=== PATIENT | female | born 1990 | race Caucasian/White ===

== ENCOUNTER 2016-08-12 19:56 | Emergency (ER) | payer BC, OTHER ==
[2016-08-12] MEDS ORDERED: NAPROXEN 250 MG TAB As Ordered ONE (22:35)
--- NOTE | 2016-08-12 22:41 | EDDOCDS ---
Physician Documentation [facility] Name: Danielle Castro Age: 26 yrs Sex: Female : 1990 Arrival Date: 08/12/2016 Time: 19:56 Bed I6 / 28 Private MD: Fara Morales Disposition: 08/12/16 22:30 Discharged to Home/Self Care. Impression: Sprain of unspecified site of right knee. - Condition is Stable. - Discharge Instructions: Elastic Bandage and RICE, Knee Sprain, Crutch Use, [id number]. - Prescriptions for Naprosyn 500 mg Oral Tablet - take 1 tablet by ORAL route 2 times per day take with food; 30 tablet. - Work Release Form - 3 day, Medication Reconciliation, Local Pharmacy Hours form. - Follow up: Orthopaedics, [facility]; When: Call to arrange an appointment; Reason: Recheck today's complaints. Follow up: Fara Morales; When: As needed; Reason: Continuance of care. - Problem is new. - Symptoms are unchanged. Historical: - Allergies: No known drug Allergies; - Home Meds: 1. Singulair 10 mg Oral tab 1 tab once daily 2. omeprazole 20 mg Oral cpDR 1 cap once daily 3. Propranolol 15mg Oral 2 times per day 4. albuterol sulfate 90 mcg/actuation Inhl aepb 1 puff every 4-6 hours - PMHx: Asthma; Hypertension; sinus arrythmia; - PSHx: wisdom teeth extraction; nose; - Social history: Smoking status: Patient states was never smoker of tobacco. No barriers to communication noted, The patient speaks fluent [place] Islander. - Family history: Not pertinent. - : The pt / caregiver states he / she is not on anticoagulants. Home medication list is obtained from the patient. - Exposure Risk Screening:: None identified. 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 7 in. (170.18 cm); Pain 6/10; 22:09 BP 145 / 78 RA Sitting (auto/reg); Pulse 76 MON; Resp 20 S; Temp 98.1(TE); Pulse Ox 98% cln on R/A; Pain 310; 19:58 Body Mass Index 25.06 (72.57 kg, 170.18 cm) gr2 MDM: 20:56 Clyde Wrap ordered. ar2 20:56 Crutches ordered. ar2 20:57 Knee, Complete Ordered. EDMS 21:08 [facility] Payment Agreement was scanned into [employer] and attached to record. gjb 21:08 Financial registration complete. gjb 22:31 Naproxen 500 mg PO once; administer with food or milk ordered. ar2 Administered Medications: 22:37 Drug: Naproxen 500 mg [naproxen 250 mg tablet (2 tabs)] Route: PO; ld5 22:37 Follow up: Response: Pt left department before re-evaluation is appropriate ld5 Signatures: Dispatcher Med[employer] EDMS Arnulfo Burns PA-C PA-C ar2 Fela Bhakta RN RN ld5 Suzan Dudley RN RN af2 Mady Overton gjb The chart was reviewed and I authenticate all verbal orders and agree with the evaluation and treatment provided.Attachments: 21:08 [facility] Payment Agreement gjb MTDD
--- NOTE | 2016-08-12 22:42 | EDDOCDS ---
Nurse's Notes [facility] Name: Danielle Castro Age: 26 yrs Sex: Female : 1990 Arrival Date: 08/12/2016 Time: 19:56 Bed I6 / 28 Private MD: Fara Morales Diagnosis: Sprain of unspecified site of right knee Presentation: 08/12 20:00 Presenting complaint: Patient states: getting into car and felt a pop in right knee, af2 now reports pain and swelling to area. Adult Sepsis Screening: The patient does not have new or worsening altered mentation. Patient's respiratory rate is less than 22. Systolic blood pressure is greater than 100. Patient has a qSOFA score of 0- Negative Sepsis Screen. Suicide/Homicide risk assessment- the patient denies having any suicidal and/or homicidal ideations and does not present with any other emotional, behavioral or mental health complaints. Status: Patient is not a community service manager or dependent. Transition of care: patient was not received from another setting of care. 20:00 Acuity: MICHAEL Level 4 af2 20:00 Method Of Arrival: Walkin/Carried/Asstd af2 Triage Assessment: 20:03 General: Appears in no apparent distress, Behavior is cooperative. Pain: Location: af2 right knee Pain currently is 8 out of 10 on a pain scale. Pt Declines HIV testing. Musculoskeletal: Reports pain in right knee. 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 Singulair 10 mg Oral tab 1 tab once daily 2. omeprazole 20 mg Oral cpDR 1 cap once daily 3. Propranolol 15mg Oral 2 times per day 4. albuterol sulfate 90 mcg/actuation Inhl aepb 1 puff every 4-6 hours - PMHx: Asthma; Hypertension; sinus arrythmia; - PSHx: wisdom teeth extraction; nose; - Social history: Smoking status: Patient states was never smoker of tobacco. No barriers to communication noted, The patient speaks fluent Nigerian. - Family history: Not pertinent. - : The pt / caregiver states he / she is not on anticoagulants. Home medication list is obtained from the patient. - Exposure Risk Screening:: None identified. Screenin:39 Screening information is obtained from the patient. Fall risk: No risks identified. ld5 Assistance ADL's: requires no assistance with activities of daily living. Abuse/DV Screen: The patient / caregiver reports he/she is: not in a situation that causes fear, pain or injury. Nutritional screening: No deficits noted. Advance Directives: Currently, there is no health care proxy. home support is adequate. Assessment: 22:39 General: Appears in no apparent distress, First contact with pt. Pain: Location: right ld5 knee Pain currently is 3 out of 10 on a pain scale. Neurological: Level of Consciousness is awake, alert. Respiratory: Airway is patent Respiratory effort is even, unlabored. Musculoskeletal: Reports pain in right knee. Vital Signs: 19:58 BP 154 / 88; Pulse 81; Resp 18 S; Temp 97.9(O); Pulse Ox 98% on R/A; Weight 72.57 kg; gr2 Height 5 ft. 7 in. (170.18 cm); Pain 6/10; 22:09 BP 145 / 78 RA Sitting (auto/reg); Pulse 76 MON; Resp 20 S; Temp 98.1(TE); Pulse Ox 98% cln on R/A; Pain 3/10; 19:58 Body Mass Index 25.06 (72.57 kg, 170.18 cm) gr2 Vitals: 19:58 Log In Time: August 12, 2016 at 09:58. gr2 ED Course: 19:58 Patient visited by Juli Davis. gr2 19:58 Fara Morales is Private Physician. gr2 19:58 Patient moved to Waiting gr2 19:59 Patient visited by Juli Davis. gr2 19:59 Patient moved to Pre RCE gr2 20:01 Triage Initiated af2 20:03 Patient visited by Suzan Dudley RN. af2 20:17 Patient moved to Triage 3 kmg1 20:50 Arnulfo Burns PA-C is PHCP. ar2 20:50 Sourav Patel DO is Attending Physician. ar2 20:50 Patient visited by Arnulfo Burns PA-C. ar2 21:04 Patient moved to TR5 9 21:08 [facility] Payment Agreement was scanned into [employer] and attached to record. gjb 21:55 Ginna Zuluaga, CHAITANYA is Primary Nurse. cln 21:55 Patient moved to I6 / 28 cln 22:09 Patient visited by Lorena Rangel PCA. cln 22:[facility]. ar2 22:30 Fara Morales is Referral Physician. ar2 22:39 The patient / caregiver is instructed regarding the plan of care and ED course. ld5 22:39 No IV's were initiated during this patient's visit. No procedures done that require ld5 assistance. Clyde wrap to right knee. Patient has positive distal pulse, brisk capillary refill, and positive sensation after application. Crutch training done. 22:41 Patient visited by Fela BhaktaRN. ld5 Administered Medications: 22:37 Drug: Naproxen 500 mg [naproxen 250 mg tablet (2 tabs)] Route: PO; ld5 22:37 Follow up: Response: Pt left department before re-evaluation is appropriate ld5 Order Results: There are currently no results for this order. Outcome: 22:30 Discharge ordered by Provider. ar2 22:39 Discharge Assessment: Patient awake, alert and oriented x 3. No cognitive and/or ld5 functional deficits noted. Patient verbalized understanding of disposition instructions. patient administered narcotics - no. The following High Risk Discharge criteria are identified: None. Discharged to home ambulatory, with crutches, with family. Condition: stable. Discharge instructions given to patient, Instructed on discharge instructions, follow up and referral plans. medication usage, crutch walking, Demonstrated understanding of instructions, crutch walking, medications, Pt was receptive of discharge instructions/ teaching. Prescriptions given X 1. Work note provided to patient. No special radiology studies were completed. Property :Personal belongings accompany Pt. 22:41 Patient left the ED. ld5 Signatures: Stormy Stevens, RN RN kmg1 Arnulfo Burns, PA-C PA-C ar2 Fela Bhakta,RN RN ld5 Juli Davis gr2 Benito Corey,CHAITANYA RN mb9 Suzan Dudley RN RN af2 Mady Overton Crystal, PCA TAR HEAT EXCHANGER CLEANER cln MTDD
--- NOTE | 2016-08-13 08:44 | REP ---
Clinical: Trauma. Technique: AP, lateral, bilateral oblique and sunrise views. Findings: The osseous structures and joint spaces are intact. There is no evidence for acute fracture or dislocation. No joint effusion is appreciated. Surrounding soft tissues are unremarkable. No subcutaneous emphysema or radiodense foreign body. Impression: No acute fracture or dislocation. Signed by Maurizio Wallace MD 08/13/2016 08:35 A
--- NOTE | 2016-08-14 23:42 | EDDOCDS ---
Physician Documentation [facility] Name: Danielle Castro Age: 26 yrs Sex: Female : 1990 Arrival Date: 08/12/2016 Time: 19:56 Bed I6 / 28 Private MD: Fara Morales Disposition: 08/12/16 22:30 Discharged to Home/Self Care. Impression: Sprain of unspecified site of right knee. - Condition is Stable. - Discharge Instructions: Elastic Bandage and RICE, Knee Sprain, Crutch Use, [id number]. - Prescriptions for Naprosyn 500 mg Oral Tablet - take 1 tablet by ORAL route 2 times per day take with food; 30 tablet. - Work Release Form - 3 day, Medication Reconciliation, Local Pharmacy Hours form. - Follow up: Orthopaedics, [facility]; When: Call to arrange an appointment; Reason: Recheck today's complaints. Follow up: Fara Morales; When: As needed; Reason: Continuance of care. - Problem is new. - Symptoms are unchanged. Historical: - Allergies: No known drug Allergies; - Home Meds: 1. Singulair 10 mg Oral tab 1 tab once daily 2. omeprazole 20 mg Oral cpDR 1 cap once daily 3. Propranolol 15mg Oral 2 times per day 4. albuterol sulfate 90 mcg/actuation Inhl aepb 1 puff every 4-6 hours - PMHx: Asthma; Hypertension; sinus arrythmia; - PSHx: wisdom teeth extraction; nose; - Social history: Smoking status: Patient states was never smoker of tobacco. No barriers to communication noted, The patient speaks fluent Nepalese. - Family history: Not pertinent. - : The pt / caregiver states he / she is not on anticoagulants. Home medication list is obtained from the patient. - Exposure Risk Screening:: None identified. 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 7 in. (170.18 cm); Pain 6/10; 22:09 BP 145 / 78 RA Sitting (auto/reg); Pulse 76 MON; Resp 20 S; Temp 98.1(TE); Pulse Ox 98% cln on R/A; Pain 310; 19:58 Body Mass Index 25.06 (72.57 kg, 170.18 cm) gr2 MDM: 20:56 Clyde Wrap ordered. ar2 20:56 Crutches ordered. ar2 20:57 Knee, Complete Ordered. EDMS : [facility] Payment Agreement was scanned into [employer] and attached to record. gjb : Financial registration complete. gjb 22:31 Naproxen 500 mg PO once; administer with food or milk ordered. ar2 08/13 11:20 T-Sheet-- Draft Copy was scanned into [employer] and attached to record. gb Administered Medications: 08/12 22:37 Drug: Naproxen 500 mg [naproxen 250 mg tablet (2 tabs)] Route: PO; ld5 22:37 Follow up: Response: Pt left department before re-evaluation is appropriate ld5 Signatures: Dispatcher MedHost EDKS Rach Smith, Reg Reg gb Arnulfo Burns, CHRISTINA PADebbi ar2 Fela BhaktaRN RN ld5 Suzan DudleyRN RN af2 Mady Overton gjb The chart was reviewed and I authenticate all verbal orders and agree with the evaluation and treatment provided.Attachments: : [facility] Payment Agreement [facility] 08/13 11:20 T-Sheet-- Draft Copy gb Chart Complete MTDD
--- NOTE | 2016-08-14 23:42 | EDDOCDS ---
Nurse's Notes [facility] Name: Danielle Castro Age: 26 yrs Sex: Female : 1990 Arrival Date: 08/12/2016 Time: 19:56 Bed I6 / 28 Private MD: Fara Morales Diagnosis: Sprain of unspecified site of right knee Presentation: 08/12 20:00 Presenting complaint: Patient states: getting into car and felt a pop in right knee, af2 now reports pain and swelling to area. Adult Sepsis Screening: The patient does not have new or worsening altered mentation. Patient's respiratory rate is less than 22. Systolic blood pressure is greater than 100. Patient has a qSOFA score of 0- Negative Sepsis Screen. Suicide/Homicide risk assessment- the patient denies having any suicidal and/or homicidal ideations and does not present with any other emotional, behavioral or mental health complaints. 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 Transition of care: patient was not received from another setting of care. 20:00 Acuity: MICHAEL Level 4 af2 20:00 Method Of Arrival: Walkin/Carried/Asstd af2 Triage Assessment: 20:03 General: Appears in no apparent distress, Behavior is cooperative. Pain: Location: af2 right knee Pain currently is 8 out of 10 on a pain scale. Pt Declines HIV testing. Musculoskeletal: Reports pain in right knee. 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 Singulair 10 mg Oral tab 1 tab once daily 2. omeprazole 20 mg Oral cpDR 1 cap once daily 3. Propranolol 15mg Oral 2 times per day 4. albuterol sulfate 90 mcg/actuation Inhl aepb 1 puff every 4-6 hours - PMHx: Asthma; Hypertension; sinus arrythmia; - PSHx: wisdom teeth extraction; nose; - Social history: Smoking status: Patient states was never smoker of tobacco. No barriers to communication noted, The patient speaks fluent Tanzanian. - Family history: Not pertinent. - : The pt / caregiver states he / she is not on anticoagulants. Home medication list is obtained from the patient. - Exposure Risk Screening:: None identified. Screenin:39 Screening information is obtained from the patient. Fall risk: No risks identified. ld5 Assistance ADL's: requires no assistance with activities of daily living. Abuse/DV Screen: The patient / caregiver reports he/she is: not in a situation that causes fear, pain or injury. Nutritional screening: No deficits noted. Advance Directives: Currently, there is no health care proxy. home support is adequate. Assessment: 22:39 General: Appears in no apparent distress, First contact with pt. Pain: Location: right ld5 knee Pain currently is 3 out of 10 on a pain scale. Neurological: Level of Consciousness is awake, alert. Respiratory: Airway is patent Respiratory effort is even, unlabored. Musculoskeletal: Reports pain in right knee. Vital Signs: 19:58 BP 154 / 88; Pulse 81; Resp 18 S; Temp 97.9(O); Pulse Ox 98% on R/A; Weight 72.57 kg; gr2 Height 5 ft. 7 in. (170.18 cm); Pain 6/10; 22:09 BP 145 / 78 RA Sitting (auto/reg); Pulse 76 MON; Resp 20 S; Temp 98.1(TE); Pulse Ox 98% cln on R/A; Pain 3/10; 19:58 Body Mass Index 25.06 (72.57 kg, 170.18 cm) gr2 Vitals: 19:58 Log In Time: August 12, 2016 at 09:58. gr2 ED Course: 19:58 Patient visited by Juli Davis. gr2 19:58 Fara Morales is Private Physician. gr2 19:58 Patient moved to Waiting gr2 19:59 Patient visited by Juli Davis. gr2 19:59 Patient moved to Pre RCE gr2 20:01 Triage Initiated af2 20:03 Patient visited by Suzan Dudley RN. af2 20:17 Patient moved to Triage 3 kmg1 20:50 Arnulfo Burns PA-C is PHCP. ar2 20:50 Sourav Patel DO is Attending Physician. ar2 20:50 Patient visited by Arnulfo Burns PA-C. ar2 21:04 Patient moved to TR5 9 21:08 [facility] Payment Agreement was scanned into [employer] and attached to record. gjb 21:55 Ginna Zuluaga, CHAITANYA is Primary Nurse. cln 21:55 Patient moved to I6 / 28 cln 22:09 Patient visited by Lorena Rangel PCA. cln 22:30 [facility]. ar2 22:30 Fara Morales is Referral Physician. ar2 22:39 The patient / caregiver is instructed regarding the plan of care and ED course. ld5 22:39 No IV's were initiated during this patient's visit. No procedures done that require ld5 assistance. Clyde wrap to right knee. Patient has positive distal pulse, brisk capillary refill, and positive sensation after application. Crutch training done. 22:41 Patient visited by Fela Bhakta RN. ld5 08/13 09:01 Knee, Complete Returned. EDMS 11:20 T-Sheet-- Draft Copy was scanned into [employer] and attached to record. gb Administered Medications: 08/12 22:37 Drug: Naproxen 500 mg [naproxen 250 mg tablet (2 tabs)] Route: PO; ld5 22:37 Follow up: Response: Pt left department before re-evaluation is appropriate ld5 Order Results: Radiology Order: Knee, Complete Test: Knee, Complete REASON FOR EXAMINATION: trauma, twist general pain; Clinical: Trauma.; ; Technique: AP, lateral, bilateral oblique and sunrise views.; ; Findings: The osseous structures and joint spaces are intact. There is no; evidence for acute fracture or dislocation. No joint effusion is appreciated.; Surrounding soft tissues are unremarkable. No subcutaneous emphysema or; radiodense foreign body.; ; Impression: No acute fracture or dislocation.; ; ; Signed by; Maurizio Wallace MD 08/13/2016 08:35 A; Outcome: 22:30 Discharge ordered by Provider. ar2 22:39 Discharge Assessment: Patient awake, alert and oriented x 3. No cognitive and/or ld5 functional deficits noted. Patient verbalized understanding of disposition instructions. patient administered narcotics - no. The following High Risk Discharge criteria are identified: None. Discharged to home ambulatory, with crutches, with family. Condition: stable. Discharge instructions given to patient, Instructed on discharge instructions, follow up and referral plans. medication usage, crutch walking, Demonstrated understanding of instructions, crutch walking, medications, Pt was receptive of discharge instructions/ teaching. Prescriptions given X 1. Work note provided to patient. No special radiology studies were completed. Property :Personal belongings accompany Pt. 22:41 Patient left the ED. ld5 Signatures: Dispatcher MedHost EDMS Stormy Stevens, RN RN kmg1 Rach Smith, Garcia Reg Arnulfo Burns, PADebbi PADebbi ar2 Fela Bhakta RN RN ld5 Juli Davis gr2 Benito Corey RN RN mb9 Suzan Dudley RN RN 2 Mady Overton Crystal, KELLIE CONSUMER INSIGHT MANAGER cln Chart Complete MTDD
--- NOTE | 2016-08-14 23:42 | EDDOCDS ---
Physician Documentation [facility] Name: Danielle Castro Age: 26 yrs Sex: Female : 1990 Arrival Date: 08/12/2016 Time: 19:56 Bed I6 / 28 Private MD: Fara Morales Disposition: 08/12/16 22:30 Discharged to Home/Self Care. Impression: Sprain of unspecified site of right knee. - Condition is Stable. - Discharge Instructions: Elastic Bandage and RICE, Knee Sprain, Crutch Use, [id number]. - Prescriptions for Naprosyn 500 mg Oral Tablet - take 1 tablet by ORAL route 2 times per day take with food; 30 tablet. - Work Release Form - 3 day, Medication Reconciliation, Local Pharmacy Hours form. - Follow up: Orthopaedics, [facility]; When: Call to arrange an appointment; Reason: Recheck today's complaints. Follow up: Fara Morales; When: As needed; Reason: Continuance of care. - Problem is new. - Symptoms are unchanged. Historical: - Allergies: No known drug Allergies; - Home Meds: 1. Singulair 10 mg Oral tab 1 tab once daily 2. omeprazole 20 mg Oral cpDR 1 cap once daily 3. Propranolol 15mg Oral 2 times per day 4. albuterol sulfate 90 mcg/actuation Inhl aepb 1 puff every 4-6 hours - PMHx: Asthma; Hypertension; sinus arrythmia; - PSHx: wisdom teeth extraction; nose; - Social history: Smoking status: Patient states was never smoker of tobacco. No barriers to communication noted, The patient speaks fluent Belgian. - Family history: Not pertinent. - : The pt / caregiver states he / she is not on anticoagulants. Home medication list is obtained from the patient. - Exposure Risk Screening:: None identified. 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 7 in. (170.18 cm); Pain 6/10; 22:09 BP 145 / 78 RA Sitting (auto/reg); Pulse 76 MON; Resp 20 S; Temp 98.1(TE); Pulse Ox 98% cln on R/A; Pain 310; 19:58 Body Mass Index 25.06 (72.57 kg, 170.18 cm) gr2 MDM: 20:56 Clyde Wrap ordered. ar2 20:56 Crutches ordered. ar2 20:57 Knee, Complete Ordered. EDMS : [facility] Payment Agreement was scanned into [employer] and attached to record. gjb : Financial registration complete. gjb 22:31 Naproxen 500 mg PO once; administer with food or milk ordered. ar2 08/13 11:20 T-Sheet-- Draft Copy was scanned into [employer] and attached to record. gb Administered Medications: 08/12 22:37 Drug: Naproxen 500 mg [naproxen 250 mg tablet (2 tabs)] Route: PO; ld5 22:37 Follow up: Response: Pt left department before re-evaluation is appropriate ld5 Signatures: Dispatcher [employer]Host EDNM Rach Smith, Reg Reg gb Anrulfo Burns, CHRISTINA PADebbi ar2 Fela BhaktaRN RN ld5 Suzan DudleyRN RN af2 Mady Overton gjb The chart was reviewed and I authenticate all verbal orders and agree with the evaluation and treatment provided.Attachments: : [facility] Payment Agreement [facility] 08/13 11:20 T-Sheet-- Draft Copy gb Chart Complete MTDD
== END 2016-08-12 22:41 | disposition home or self-care (01) ==
LOC: M ED 19:56
DX: S83.91XA Sprain of unspecified site of right knee, initial encounter (principal); X58.XXXA Exposure to other specified factors, initial encounter; Y92.89 Other specified places as the place of occurrence of the external cause; Y93.89 Activity, other specified; Y99.8 Other external cause status; J45.909 Unspecified asthma, uncomplicated; I10 Essential (primary) hypertension; I49.8 Other specified cardiac arrhythmias; Z79.899 Other long term (current) drug therapy; Z79.51 Long term (current) use of inhaled steroids

== ENCOUNTER 2018-08-22 12:10 | Emergency (ER) | payer BC, OTHER ==
[~2018-08-22] VITALS: Ht 167.6 cm; Wt 65.9 kg
[2018-08-22] MEDS ORDERED: VENTAER (12:16)
[2018-08-22] MEDS ORDERED: PROP10TA56 (12:16)
[2018-08-22] MEDS ORDERED: OMEP20CA3 (12:16)
[2018-08-22] MEDS ORDERED: MONT10TA2 (12:16)
[2018-08-22 13:52] LABS: BASO # 0.1 10^3/uL (0.0-0.2); BASO % 0.7 % (0.0-1.0); EOS # 0.1 10^3/uL (0.0-0.50); EOS % 0.6 % (0.0-3.0); HEMATOCRIT 44.6 % (36.0-47.0); LYMPH # 2.2 10^3/uL (1.5-6.5); LYMPH % 22.5 % (24.0-44.0); MEAN CORPUSCULAR HEMOGLOBIN 33.8 pg (27.0-33.0); MEAN CORPUSCULAR HGB CONC 33.6 g/dl (32.0-36.5); MEAN CORPUSCULAR VOLUME 100.5 fl (80.0-96.0); MONO # 0.7 10^3/uL (0.0-0.8); MONO % 7.1 % (0.0-5.0); NEUTROPHILS # 6.6 10^3/uL (1.8-7.7); NEUTROPHILS % 68.7 % (36.0-66.0); PLATELET COUNT, AUTOMATED 363 10^3/uL (150-450); RED BLOOD COUNT 4.44 10^6/uL (4.00-5.40); WHITE BLOOD COUNT 9.7 10^3/uL (4.0-10.0)
[2018-08-22 14:11] LABS: ALT/SGPT 28 U/L (12-78); BILIRUBIN,DIRECT 0.2 MG/DL (0.0-0.2); BILIRUBIN,TOTAL 0.6 MG/DL (0.2-1.0); BLOOD UREA NITROGEN 11 MG/DL (7-18); CARBON DIOXIDE LEVEL 26 MEQ/L (21-32); CHLORIDE LEVEL 104 MEQ/L (98-107); CPK CREATINE PHOSPHOKINASE 93 U/L (26-192); CREATININE FOR GFR 0.74 MG/DL (0.55-1.30); GLOMERULAR FILTRATION RATE > 60.0 (>60); GLUCOSE, FASTING 90 MG/DL (70-100); HCG, SERUM QUANTITATIVE < 1.0 MIU/ML; POTASSIUM SERUM 3.7 MEQ/L (3.5-5.1); SODIUM LEVEL 139 MEQ/L (136-145); THYROID STIMULATING HORMONE 0.858 uIU/ML (0.358-3.740); TROPONIN I < 0.02 NG/ML (< 0.10)
[2018-08-22 14:45] VITALS: BP 140/90
--- NOTE | 2018-08-22 14:47 | REP ---
Chest one-view HISTORY: Chest pain Comparison: None The lungs are clear. The heart is normal in size. The pulmonary vasculature is normal in appearance. Impression: No acute disease. Electronically Signed by Selvin Fairchild MD 08/22/2018 02:38 P
[2018-08-22] MEDS ORDERED: LISI-542 PO (15:45)
[2018-08-22] MEDS ORDERED: LISINOPRIL 5 MG TAB PO ONE (15:45)
[2018-08-22 15:50] VITALS: BP 144/102
[2018-08-22 15:51] LABS: APPEARANCE, URINE HAZY (CLEAR); BACTERIA, URINE AUTO 1+ (NEGATIVE); BILIRUBIN, URINE AUTO NEGATIVE (NEGATIVE); BLOOD, URINE BLOOD NEGATIVE (NEGATIVE); COLOR, URINE YELLOW (YELLOW); GLUCOSE, URINE (UA) AUTO NEGATIVE (NEGATIVE); KETONE, URINE AUTO NEGATIVE (NEGATIVE); LEUKOCYTE ESTERASE, URINE AUTO NEGATIVE (NEGATIVE); MUCUS, URINE SMALL (NEGATIVE); NITRITE, URINE AUTO NEGATIVE (NEGATIVE); PROTEIN, URINE AUTO 1+ mg/dL (NEGATIVE); RBC, URINE AUTO 2 /HPF (0-3); SPECIFIC GRAVITY URINE AUTO 1.021 (1.002-1.035); SQUAMOUS EPITHELIAL CELL UR AU 14 /HPF (0-6); UROBILINOGEN, URINE AUTO 0.2 mg/dL (0.0-2.0); WBC, URINE AUTO 1 /HPF (0-3)
--- NOTE | 2018-08-24 06:44 | ECGEPIP ---
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
== END 2018-08-22 16:05 | disposition home or self-care (01) ==
LOC: M ED 12:10
DX: I10 Essential (primary) hypertension (principal); Z79.899 Other long term (current) drug therapy

== ENCOUNTER → 2018-09-29 | Outpatient (REF) | payer BC ==
[~2018-09-29] MED LIST: LISI-542 PO; MONT10TA2; OMEP20CA3; PROP10TA56; VENTAER
[2018-09-29 16:00] LABS: CHLAMYDIA DNA AMPLIFICATION NEGATIVE (NEGATIVE); GC DNA AMPLIFICATION NEGATIVE (NEGATIVE)
== END ==
LOC: M LAB REF 13:59
PROVIDERS: ATTEND Nurse Practitioner Family
DX: N76.0 Acute vaginitis (principal)

== ENCOUNTER → 2022-02-12 | Outpatient (REF) | payer BC ==
[~2022-02-12] MED LIST changes: -LISI-542 PO; +LISI5TAB11 PO; -MONT10TA2; +MONT10TA97; +OMEP1CAP73; -OMEP20CA3
== END ==
LOC: M LAB REF 20:05
PROVIDERS: ATTEND Physician Assistant Medical
DX: R68.83 Chills (without fever) (principal); R07.0 Pain in throat

== ENCOUNTER → 2023-01-07 | Outpatient (REF) | payer BC ==
[2023-01-08 14:15] LABS: HEPATITIS B CORE ANTIBODY IGM NEGATIVE (NEGATIVE); HEPATITIS C VIRUS ABY INDEX 0.1 INDEX (<0.8)
== END ==
LOC: M LAB REF 12:30
PROVIDERS: ATTEND Internal Medicine
DX: R74.01 Elevation of levels of liver transaminase levels (principal)

== ENCOUNTER → 2023-01-28 | Outpatient (REF) | payer BC ==
[2023-01-28 19:21] LABS: BILIRUBIN,DIRECT 0.2 MG/DL (<0.4); BILIRUBIN,TOTAL 0.5 MG/DL (0.3-1.2); MAGNESIUM LEVEL 1.7 MG/DL (1.8-2.4); TOTAL PROTEIN 6.6 G/DL (5.7-8.2)
== END ==
LOC: M LAB REF 17:17
PROVIDERS: ATTEND Internal Medicine
DX: R74.8 Abnormal levels of other serum enzymes (principal)

== ENCOUNTER → 2023-02-13 | Outpatient (REF) | payer BC ==
[2023-02-13 17:54] LABS: ALBUMIN 4.3 G/DL (3.2-5.2); BILIRUBIN,DIRECT 0.2 MG/DL (<0.4); BILIRUBIN,TOTAL 0.8 MG/DL (0.3-1.2); TOTAL PROTEIN 7.2 G/DL (5.7-8.2)
[2023-02-13 17:55] LABS: FERRITIN 36.2 NG/ML (7.3-270.7)
[2023-02-15 16:08] LABS: ALPHA 1 ANTITRYPSIN 119 mg/dL (100-188); ANTI-MITOCHONDRIAL ANTIBODY <20.0 Units (0.0-20.0); ANTINUCLEAR ANTIBODIES DIRECT Negative (Negative); TRANSFERRIN 299 mg/dL (192-364)
== END ==
LOC: M LAB REF 16:24
PROVIDERS: ATTEND Internal Medicine
DX: R74.8 Abnormal levels of other serum enzymes (principal); K76.0 Fatty (change of) liver, not elsewhere classified

== ENCOUNTER → 2023-03-08 | Outpatient (CLI) | payer BC | LOC: M RAD 08:44 | PROVIDERS: ATTEND Internal Medicine | DX: R74.8 Abnormal levels of other serum enzymes (principal); R14.0 Abdominal distension (gaseous); R16.0 Hepatomegaly, not elsewhere classified; K76.0 Fatty (change of) liver, not elsewhere classified ==

== ENCOUNTER → 2023-03-25 | Outpatient (REF) | payer BC ==
[2023-03-25 19:00] LABS: ALBUMIN 4.2 G/DL (3.2-5.2); BILIRUBIN,DIRECT 0.2 MG/DL (<0.4); BILIRUBIN,TOTAL 0.7 MG/DL (0.3-1.2); TOTAL PROTEIN 7.1 G/DL (5.7-8.2)
== END ==
LOC: M LAB REF 16:23
PROVIDERS: ATTEND Internal Medicine
DX: R74.8 Abnormal levels of other serum enzymes (principal); K76.0 Fatty (change of) liver, not elsewhere classified

== ENCOUNTER → 2023-05-07 | Outpatient (REF) | payer BC ==
[2023-05-07 12:26] LABS: BASO # 0.1 10^3/uL (0.0-0.2); EOS # 0.2 10^3/uL (0.0-0.5); EOS % 2.8 % (0.0-3.0); HEMATOCRIT 43.9 % (36.0-47.0); HEMOGLOBIN 14.4 g/dl (12.0-15.5); LYMPH # 2.3 10^3/uL (1.5-5.0); LYMPH % 39.1 % (24.0-44.0); MEAN CORPUSCULAR HGB CONC 32.8 g/dl (32.0-36.5); MEAN CORPUSCULAR VOLUME 100.7 fl (80.0-96.0); MONO # 0.5 10^3/uL (0.0-0.8); MONO % 9.3 % (2.0-8.0); NEUTROPHILS # 2.7 10^3/uL (1.5-8.5); NEUTROPHILS % 47.3 % (36.0-66.0); PLATELET COUNT, AUTOMATED 312 10^3/uL (150-450); RED BLOOD COUNT 4.36 10^6/uL (4.00-5.40); WHITE BLOOD COUNT 5.8 10^3/uL (4.0-10.0)
[2023-05-07 12:51] LABS: ALBUMIN 3.8 G/DL (3.2-5.2); ALKALINE PHOSPHATASE 49 U/L (46-116); ALT/SGPT 77 U/L (7.0-40); AST/SGOT 37 U/L (<34); BILIRUBIN,TOTAL 0.4 MG/DL (0.3-1.2); BLOOD UREA NITROGEN 10 MG/DL (9-23); CALCIUM LEVEL 8.7 MG/DL (8.5-10.1); CARBON DIOXIDE LEVEL 27 MMOL/L (20-31); CHLORIDE LEVEL 105 MMOL/L (98-107); CHOLESTEROL LEVEL 192 MG/DL (<200); CHOLESTEROL RISK RATIO 3.36 (<5); CREATININE FOR GFR 0.68 MG/DL (0.55-1.30); GLOMERULAR FILTRATION RATE > 60.0 (>60); GLUCOSE, FASTING 98 MG/DL (60-100); LDL CHOLESTEROL 113.4 MG/DL (<100); MAGNESIUM LEVEL 1.7 MG/DL (1.8-2.4); POTASSIUM SERUM 4.3 MMOL/L (3.5-5.1); SODIUM LEVEL 139 MMOL/L (136-145); THYROID STIMULATING HORMONE 0.886 uIU/ML (0.55-4.78); TOTAL PROTEIN 6.5 G/DL (5.7-8.2); TRIGLYCERIDES LEVEL 108 MG/DL (<150)
== END ==
LOC: M LAB REF 12:03
PROVIDERS: ATTEND Internal Medicine
DX: R74.8 Abnormal levels of other serum enzymes (principal); K76.0 Fatty (change of) liver, not elsewhere classified; R53.83 Other fatigue; E78.5 Hyperlipidemia, unspecified

== ENCOUNTER → 2023-08-06 | Outpatient (REF) | payer BC ==
[2023-08-06 14:02] LABS: ALBUMIN 4.3 G/DL (3.2-5.2); ALKALINE PHOSPHATASE 63 U/L (46-116); ALT/SGPT 98 U/L (7.0-40); AST/SGOT 50 U/L (<34); BILIRUBIN,DIRECT < 0.1 MG/DL (<0.4); BILIRUBIN,TOTAL 0.3 MG/DL (0.3-1.2)
== END ==
LOC: M LAB REF 13:24
PROVIDERS: ATTEND Internal Medicine
DX: K76.0 Fatty (change of) liver, not elsewhere classified (principal); E78.5 Hyperlipidemia, unspecified

== ENCOUNTER → 2023-11-01 | Outpatient (CLI) | payer BC | LOC: M WUC 10:24 | PROVIDERS: ATTEND Physician Assistant Medical | DX: M79.671 Pain in right foot (principal) ==

== ENCOUNTER 2024-09-28 10:13 | Day surgery (SDC) | payer OTHER ==
[~2024-09-28] VITALS: Ht 172.7 cm; Wt 84.3 kg
[~2024-09-28 10:13] MED LIST changes: +ATOM40CA9 PO; +BUPR150T12 PO; +LEXA1TAB2 PO; +METO1TAB33 PO; -MONT10TA97; +MONT10TA97 PO; -OMEP1CAP73; +OMEP1CAP73 PO; +PROA1AER2 IN; -PROP10TA56; +PROP10TA56 PO; +TRAZ-186 PO
[2024-09-28] MEDS ORDERED: LR 1,000 ML IV SCH (10:30)
[2024-09-28] MEDS ORDERED: fentaNYL 100 MCG/2 ML INJECTION As Ordered ONE (10:53)
[2024-09-28] MEDS ORDERED: ROCURONIUM BROMIDE 50MG/5ML VIAL As Ordered ONE (10:53)
[2024-09-28] MEDS ORDERED: LIDOCAINE 2% 100MG/5ML SDV (FOR ANES.) As Ordered ONE (10:53)
[2024-09-28] MEDS ORDERED: propofoL 200 MG/20 ML VIAL As Ordered ONE (10:53)
[2024-09-28] MEDS ORDERED: SUGAMMADEX SODIUM 500 MG/5 ML VIAL (BRIDION) As Ordered ONE (10:53)
[2024-09-28] MEDS ORDERED: MIDAZOLAM INJ 2MG/2ML VIAL As Ordered ONE (10:53)
[2024-09-28] MEDS ORDERED: KETOROLAC 60MG 2ML VIAL As Ordered ONE (10:54)
[2024-09-28] MEDS ORDERED: ACETAMINOPHEN 1000MG/100ML IV BAG As Ordered ONE (10:54)
[2024-09-28] MEDS ORDERED: ONDANSETRON 4MG 2ML VIAL As Ordered ONE (10:54)
[2024-09-28] MEDS: LIDOCAINE W/EPINEPHRINE 1% 20ML VIAL As Ordered ONE (12:01)
[2024-09-28] MEDS ORDERED: HYDROmorphone HCL 2MG/ML 1ML VIAL As Ordered ONE (12:03)
[2024-09-28] MEDS: COCAINE 4% 4ML NASAL SOLUTION BTL As Ordered ONE (12:05)
[2024-09-28] MEDS: OXYMETAZOLINE 0.05% NASAL SPRAY As Ordered ONE (12:05)
[2024-09-28] MEDS ORDERED: fentaNYL 100 MCG/2 ML INJECTION IV PRN (12:35)
[2024-09-28] MEDS ORDERED: ONDANSETRON 4MG 2ML VIAL IV PRN (12:35)
[2024-09-28] MEDS ORDERED: oxyCODONE 5MG TAB PO PRN (12:35)
[2024-09-28 13:36] VITALS: BP 143/90; TEMP 97.7; O2SAT 99
== END 2024-09-28 14:00 | disposition home or self-care (01) ==
LOC: M SDC 10:13
PROVIDERS: ATTEND Otolaryngology
DX: J34.3 Hypertrophy of nasal turbinates (principal); I10 Essential (primary) hypertension; K21.9 Gastro-esophageal reflux disease without esophagitis; F41.9 Anxiety disorder, unspecified; J45.909 Unspecified asthma, uncomplicated; Z79.899 Other long term (current) drug therapy
CPT/HCPCS: 30140; 81025; C9143; J0131; J1100; J1171; J1885; J2250; J2405; J3010

== ENCOUNTER → 2024-10-30 | Outpatient (REF) | payer OTHER | LOC: M LAB REF 12:41 | PROVIDERS: ATTEND Internal Medicine | DX: I73.00 Raynaud's syndrome without gangrene (principal) ==